=== PATIENT | male | born 1995 | race Caucasian/White ===

== ENCOUNTER 2024-01-31 17:36 | Emergency (ER) | payer SELFPAY ==
[~2024-01-31] VITALS: Ht 167.6 cm; Wt 95.0 kg
[2024-01-31 17:48] VITALS: O2SAT 96
[2024-01-31] MEDS ORDERED: TRIMO EACHEYE (18:38)
[2024-01-31] MEDS ORDERED: DOXY100C5 MT (18:43)
[2024-01-31 18:45] VITALS: BP 159/88; PULSE 75; RESP 17; TEMP 36.94740; O2SAT 100
[2024-01-31] MEDS: AZITHROMYCIN 500 MG TABLET PO ONE (19:03)
[2024-01-31] MEDS: DOXYCYCLINE HYCLATE 100MG CAPSULE PO ONE (19:03)
[2024-02-02 13:11] LABS: NEISSERIA GONORRHOEAE NAA Negative (Negative)
[2024-02-03 04:08] LABS: CHLAMYDIA TRACHOMATIS NAA Positive (Negative)
== END 2024-01-31 19:25 | disposition home or self-care (01) ==
LOC: ER 17:36
DX: H10.89 Other conjunctivitis (principal)
CPT/HCPCS: 87491; 87591; 99283